=== PATIENT | female | born 1980 | race Hispanic/Latino ===

== ENCOUNTER 2017-09-08 22:59 | Emergency (ER) | payer OTHER, SELFPAY ==
[2017-09-09 00:43] LABS: Absolute Lymphocytes (CBC) 2.7 K/uL (0.7-4.9); Absolute Monocytes 0.5 K/uL (0.1-1.3); Absolute Neutrophil 4.7 K/uL (1.8-8.0); Basophils % 0.5 % (0-1.3); Eosinophils % 1.3 % (0-4.4); Hematocrit 37.6 % (36.0-45.0); Lymphocytes % 33.3 % (15.3-44.8); MCV 88.2 fL (80-100); MPV 8.4 fL (7.6-11.3); Monocytes % 5.8 % (3.3-12.3); RBC Red Blood Cell Count 4.26 M/uL (3.86-4.86)
[2017-09-09] MEDS ORDERED: NA CHLORIDE 0.9% 1,000 ML ONE (00:50)
--- NOTE | 2017-09-09 00:54 | EDPHYS ---
Physician Documentation [facility] Name: Lissette Bradshaw Age: 37 yrs Sex: Female : 1980 Arrival Date: 09/08/2017 Time: 23:03 Bed 27 Private MD: ED Physician Piyush Luna HPI: 09/09 00:00 This 37 yrs old Female presents to ER via Ambulatory with complaints of pkl Vaginal Bleeding. 00:00 The patient presents with vaginal bleeding that is heavy. Onset: The symptoms/episode pkl began/occurred today. Associated signs and symptoms: The patient has no apparent associated signs or symptoms. 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 - Social history:: Smoking status: Patient/guardian denies using tobacco, Patient/guardian denies using alcohol, street drugs. ROS: 09/09 00:00 Positive for vaginal bleeding. pkl Eyes: Negative for injury, pain, redness, and discharge, ENT: Negative for injury, pain, and discharge, Neck: Negative for injury, pain, and swelling, Cardiovascular: Negative for chest pain, palpitations, and edema, Respiratory: Negative for shortness of breath, cough, wheezing, and pleuritic chest pain. Abdomen/GI: Negative for abdominal pain, nausea, vomiting, and diarrhea. Back: Negative for acute changes. MS/extremity: Negative for acute changes. Skin: Negative for rash. Neuro: Negative for altered mental status. Exam: 00:25 Head/Face: Normocephalic, atraumatic. Eyes: Pupils equal round and reactive to light, pkl extra-ocular motions intact. Lids and lashes normal. Conjunctiva and sclera are non-icteric and not injected. Cornea within normal limits. Periorbital areas with no swelling, redness, or edema. ENT: Nares patent. No nasal discharge, no septal abnormalities noted. Tympanic membranes are normal and external auditory canals are clear. Oropharynx with no redness, swelling, or masses, exudates, or evidence of obstruction, uvula midline. Mucous membranes moist. Neck: Trachea midline, no thyromegaly or masses palpated, and no cervical lymphadenopathy. Supple, full range of motion without nuchal rigidity, or vertebral point tenderness. No Meningismus. Chest/axilla: Normal chest wall appearance and motion. Nontender with no deformity. No lesions are appreciated. Cardiovascular: Regular rate and rhythm with a normal S1 and S2. No gallops, murmurs, or rubs. Normal PMI, no JVD. No pulse deficits. Respiratory: Lungs have equal breath sounds bilaterally, clear to auscultation and percussion. No rales, rhonchi or wheezes noted. No increased work of breathing, no retractions or nasal flaring. Abdomen/GI: Soft, non-tender, with normal bowel sounds. No distension or tympany. No guarding or rebound. No evidence of tenderness throughout. Back: No spinal tenderness. No costovertebral tenderness. Full range of motion. 00:25 : Pelvic Exam: Speculum exam: mild bleeding, the nurse was present for the exam. 00:25 Musculoskeletal/extremity: Exam is negative for acute changes. 00:25 Skin: Exam negative for rash. 00:25 Neuro: Orientation: is normal, Mentation: is normal, Cranial nerves: grossly normal, Motor: is normal. Vital Signs: 09/08 23:21 BP 152 / 93; Pulse 89; Resp 18; Temp 98.; Pulse Ox 100% ; tl3 23:59 BP 102 / 85; Pulse 96; Resp 18; Pulse Ox 100% ; tl3 09/09 01:10 BP 118 / 63; Pulse 66; Resp 16; Pulse Ox 97% on R/A; kr2 MDM: 09/08 23:20 Patient medically screened. [facility] 09/09 00:53 Data reviewed: vital signs, nurses notes, lab test result(s). [facility] 09/08 23:52 Order name: Urine Dipstick--Ancillary (enter results) [facility] 09/08 23:52 Order name: Urine --Ancillary (enter results) [facility] 09/08 23:52 Order name: Urine Dipstick-Ancillary (obtain specimen); Complete Time: 23:52 [facility] 09/09 00:00 Order name: CBC with Diff; Complete Time: 00:52 [facility] 09/08 23:52 Order name: Urine Test (obtain specimen); Complete Time: 23:52 em1 Administered Medications: 00:34 Drug: NS 0.9% 500 ml Route: IV; Rate: bolus; Site: right forearm; Delivery: Primary tl3 tubing; :22 Follow up: IV Status: Completed infusion; IV Intake: 500ml tl3 01:22 Not Given (pt discharged): NS 0.9% 1000 ml IV at 100 ml/hr once tl3 Disposition: 09/09/17 00:54 Discharged to Home. Impression: Vaginal bleeding. - Condition is Stable. - Medication Reconciliation Form, Thank You Letter, Antibiotic Education, Prescription Opioid Use form. - Follow up: Private Physician; When: Tomorrow; Reason: Re-evaluation by your physician. - Problem is new. - Symptoms have improved. Signatures: Dispatcher [employer] Piyush Nolan MD MD pkl Chretien, Felicia, RN RN Richadr Torres em1 Karime James RN RN kr2 Kellen Bernal RN RN tl3
--- NOTE | 2017-09-09 00:54 | ER ---
Nurse's Notes [facility] Name: Lissette Bradshaw Age: 37 yrs Sex: Female : 1980 Arrival Date: 09/08/2017 Time: 23:03 Bed 27 Private MD: Diagnosis: Vaginal bleeding Presentation: 09/08 23:05 Presenting complaint: Patient states: that at 0230 this am she started to have bright fc red bleeding with clots. She has gone through 10 pads and 10 tampons. Transition of care: patient was not received from another setting of care. Onset of symptoms was September 08, 2017 at 02:30. Care prior to arrival: None. 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 - Social history:: Smoking status: Patient/guardian denies using tobacco, Patient/guardian denies using alcohol, street drugs. Screenin:21 Abuse screen: Denies threats or abuse. Nutritional screening: No deficits noted. fc Tuberculosis screening: No symptoms or risk factors identified. 23:21 Fall Risk None identified. tl3 Assessment: 23:21 General: Appears in no apparent distress. comfortable, well groomed, well developed, tl3 well nourished, Behavior is calm, cooperative, appropriate for age. Pain: Complains of pain in left upper quadrant and left lower quadrant Pain currently is 6 out of 10 on a pain scale. Neuro: Level of Consciousness is awake, alert, obeys commands, Oriented to person, place, time, situation, Appropriate for age. Cardiovascular: Heart tones S1 S2 present Capillary refill < 3 seconds in bilateral fingers. Respiratory: Airway is patent Trachea midline Respiratory effort is even, unlabored, Breath sounds are clear bilaterally. GI: No signs and/or symptoms were reported involving the gastrointestinal system. : Urine is Reports vaginal bleeding that is bright red, heavy flow started at 2:00 am, gushing amount of blood. Last cycle started on the 28 of August and was normal, lasted about 7 days. EENT: No signs and/or symptoms were reported regarding the EENT system. Derm: No signs and/or symptoms reported regarding the dermatologic system. Musculoskeletal: No signs and/or symptoms reported regarding the musculoskeletal system. 09/09 01:09 Reassessment: Patient appears in no apparent distress at this time. Patient is alert, kr2 oriented x 3, equal unlabored respirations, skin warm/dry/pink. Given feminine pads and wipes due to continued vaginal bleeding. Vital Signs: 09/08 23:21 BP 152 / 93; Pulse 89; Resp 18; Temp 98.; Pulse Ox 100% ; tl3 23:59 BP 102 / 85; Pulse 96; Resp 18; Pulse Ox 100% ; tl3 09/09 01:10 BP 118 / 63; Pulse 66; Resp 16; Pulse Ox 97% on R/A; kr2 ED Course: 09/08 23:03 Patient arrived in ED. es 23:05 Arm band placed on right wrist. Patient placed in an exam room, on a stretcher. fc 23:12 Kellen Bernal, RONI is Primary Nurse. tl3 23:20 Triage completed. fc 23:20 Piyush Luna MD is Attending Physician. pkl 23:21 No apparent distress. Resting quietly. Awaiting ED provider evaluation. tl3 23:21 Patient has correct armband on for positive identification. Bed in low position. Call fc light in reach. 23:21 Warm blanket given. tl3 23:21 No provider procedures requiring assistance completed. fc 23:21 Urine collected: clean catch specimen. tl3 23:44 Straight cath inserted, using sterile technique, 16 Fr. Specimen obtained. tl3 09/09 00:14 Assist provider with pelvic exam: Set up pelvic tray. Performed by Piyush Luna MD Patient tl3 tolerated well. 01:11 IV discontinued, intact, bleeding controlled, No redness/swelling at site. Pressure kr2 dressing applied. Administered Medications: 00:34 Drug: NS 0.9% 500 ml Route: IV; Rate: bolus; Site: right forearm; Delivery: Primary tl3 tubing; 01:22 Follow up: IV Status: Completed infusion; IV Intake: 500ml tl3 01:22 Not Given (pt discharged): NS 0.9% 1000 ml IV at 100 ml/hr once tl3 Intake: 01:22 IV: 500ml; Total: 500ml. tl3 Outcome: 00:54 Discharge ordered by . malathi 01:11 Discharged to home ambulatory. kr2 01:11 Condition: good 01:11 Discharge instructions given to patient, Instructed on discharge instructions, follow up and referral plans. medication usage, Demonstrated understanding of instructions, follow-up care, medications, Prescriptions given X 1. 01:11 Patient left the ED. kr2 Signatures: Piyush Luna MD MD pkl Edelmira Real Felicia RN RN Karime James RN RN kr2 Kellen Bernal RN RN tl3
[2017-09-09 01:42] LABS: Urine Blood 2+ (NEG); Urine Glucose NEGATIVE (NEG); Urine Protein TRACE (NEG); Urine Specific Gravity >1.030 (1.005-1.030)
[2017-09-09 01:48] VITALS: TEMP 98
[2017-09-09 01:51] VITALS: BP 118/63; O2SAT 97
== END 2017-09-09 01:11 | disposition home or self-care (01) ==
LOC: ER 22:59
DX: N93.9 Abnormal uterine and vaginal bleeding, unspecified (principal)
CPT/HCPCS: 36415; 51702; 81003; 81025; 85025; 96360; 99284; J7030

== ENCOUNTER 2021-04-13 07:28 | Emergency (ER) | payer SELFPAY ==
[2021-04-13] MEDS ORDERED: HYDROCODONE/APAP 5/325 MG TAB ONE (07:57)
--- NOTE | 2021-04-13 08:55 | RAD REPORT ---
EXAM DESCRIPTION: RAD - Elbow Right 3 View - 04/13/2021 8:28 am CLINICAL HISTORY: PAIN COMPARISON: No comparisons FINDINGS: No acute fracture or dislocation seen.
--- NOTE | 2021-04-13 09:17 | ER ---
Nurse's Notes [facility] Name: Lissette Bradshaw Age: 41 yrs Sex: Female : 1980 Arrival Date: 04/13/2021 Time: 07:31 Bed 20 Private MD: Diagnosis: Contusion of right elbow Presentation: 04/13 07:39 Chief complaint: Patient states: Hit R elbow 2 weeks ago. Pain since. PMS intact. ll1 Coronavirus screen: Vaccine status: Patient reports receiving the 2nd dose of the covid vaccine. Client denies travel out of the [place] in the last 14 days. At this time, the client does not indicate any symptoms associated with coronavirus-19. Ebola Screen: Patient denies travel to an Ebola-affected area in the 21 days before illness onset. Initial Sepsis Screen: Does the patient meet any 2 criteria? No. Patient's initial sepsis screen is negative. Does the patient have a suspected source of infection? Yes: Bone or joint infection. Risk Assessment: Do you want to hurt yourself or someone else? Patient reports no desire to harm self or others. Onset of symptoms was March 29, 2021. 07:39 Method Of Arrival: Ambulatory ll1 07:39 Acuity: HARVINDER 4 ll1 Triage Assessment: 07:41 General: Appears in no apparent distress. Behavior is calm, cooperative, appropriate ll1 for age. Pain: Denies pain. Musculoskeletal: Circulation, motion, and sensation intact. Capillary refill < 3 seconds, Range of motion: intact in all extremities, Tenderness present in R elbow Reports pain in R elbow. Injury Description: Bruise. Historical: - Allergies: 07:38 No Known Allergies; ll1 - PMHx: 07:38 None; ll1 - PSHx: 07:38 Cholecystectomy; tubes tied; ll1 - Immunization history:: Client reports receiving the 2nd dose of the Covid vaccine. - Social history:: Smoking status: Reported history of juuling and/or vaping. Patient/guardian denies using alcohol, street drugs, The patient lives with family. - Family history:: not pertinent. Screenin:41 Abuse screen: Denies threats or abuse. Nutritional screening: No deficits noted. ll1 Tuberculosis screening: No symptoms or risk factors identified. 07:42 Fall Risk Total Ya Fall Scale indicates No Risk (0-24 pts). ll1 Assessment: 09:22 Reassessment: Patient appears in no apparent distress at this time. Patient and/or ss family updated on plan of care and expected duration. Pain level reassessed. Patient is alert, oriented x 3, equal unlabored respirations, skin warm/dry/pink. Vital Signs: 07:39 BP 149 / 90; Pulse 64; Resp 16; Temp 97.7; Pulse Ox 100% ; Weight 90.72 kg; Height 5 ll1 ft. 7 in. (170.18 cm); Pain 10/10; 07:39 Body Mass Index 31.32 (90.72 kg, 170.18 cm) ll1 ED Course: 07:31 Patient arrived in ED. ds1 07:32 Amos Galarza MD is Attending Physician. ma2 07:38 La Nena Acosta, RONI is Primary Nurse. ll1 07:38 Arm band placed on Patient placed in an exam room, on a stretcher. ll1 07:40 Triage completed. ll1 07:41 Patient has correct armband on for positive identification. Bed in low position. Call 1 light in reach. Side rails up X 1. Cardiac monitoring not applicable on this patient. 08:00 Sling applied to. 5 08:28 Elbow Right 3 View XRAY In Process Unspecified. EDMS 09:22 No provider procedures requiring assistance completed. Patient did not have IV access ss during this emergency room visit. Administered Medications: 08:00 Drug: HYDROcodone-acetaminophen 5 mg-325 mg 1 tabs {Note: rass 0.} Route: PO; 1 09:03 Follow up: Response: No adverse reaction; Pain is decreased 1 Outcome: 09:17 Discharge ordered by . [facility] 09:22 Discharged to home ambulatory. ss 09:22 Condition: good 09:22 Discharge instructions given to patient, Instructed on discharge instructions, follow up and referral plans. medication usage, Demonstrated understanding of instructions, follow-up care, medications, Prescriptions given X 1. 09:24 Patient left the ED. Signatures: Dispatcher [employer] EDVT McclureYahaira rivera ds1 Miley Reyes RN RN Tahmina Graves 5 Amos Galarza MD MD ma2 Lewis, Lynsay, RN RN [facility]
--- NOTE | 2021-04-13 09:17 | EDPHYS ---
Physician Documentation [facility] Name: Lissette Bradshaw Age: 41 yrs Sex: Female : 1980 Arrival Date: 04/13/2021 Time: 07:31 Bed 20 Private MD: ED Physician Amos Galarza HPI: 04/13 09:15 This 41 yrs old Female presents to ER via Ambulatory with complaints of Elbow ma2 Pain. 09:15 The patient or guardian complains of decreased range of motion. The complaints affect ma2 the right antecubital area. Onset: The symptoms/episode began/occurred suddenly, gradually, 2 week(s) ago. Associated signs and symptoms: Pertinent positives: Pertinent negatives: erythema, pain, tingling, warmth. Severity of symptoms: At their worst the symptoms were moderate, in the emergency department the symptoms are unchanged. The patient has not experienced similar symptoms in the past. Historical: - Allergies: 07:38 No Known Allergies; ll1 - PMHx: 07:38 None; ll1 - PSHx: 07:38 Cholecystectomy; tubes tied; ll1 - Immunization history:: Client reports receiving the 2nd dose of the Covid vaccine. - Social history:: Smoking status: Reported history of juuling and/or vaping. Patient/guardian denies using alcohol, street drugs, The patient lives with family. - Family history:: not pertinent. ROS: 09:15 Constitutional: Negative for fever, chills, and weight loss. ma2 09:15 All other systems are negative. Exam: 09:15 Constitutional: This is a well developed, well nourished patient who is awake, alert, ma2 and in no acute distress. Chest/axilla: Normal chest wall appearance and motion. Nontender with no deformity. No lesions are appreciated. Cardiovascular: Regular rate and rhythm with a normal S1 and S2. No gallops, murmurs, or rubs. Normal PMI, no JVD. No pulse deficits. Respiratory: Lungs have equal breath sounds bilaterally, clear to auscultation and percussion. No rales, rhonchi or wheezes noted. No increased work of breathing, no retractions or nasal flaring. Abdomen/GI: Soft, non-tender, with normal bowel sounds. No distension or tympany. No guarding or rebound. No evidence of tenderness throughout. Skin: Warm, dry with normal turgor. Normal color with no rashes, no lesions, and no evidence of cellulitis. MS/ Extremity: Pulses equal, no cyanosis. Neurovascular intact. Full, normal range of motion. Neuro: Awake and alert, GCS 15, oriented to person, place, time, and situation. Cranial nerves II-XII grossly intact. Motor strength 5/5 in all extremities. Sensory grossly intact. Cerebellar exam normal. Normal gait. Vital Signs: 07:39 BP 149 / 90; Pulse 64; Resp 16; Temp 97.7; Pulse Ox 100% ; Weight 90.72 kg; Height 5 ll1 ft. 7 in. (170.18 cm); Pain 10/10; 07:39 Body Mass Index 31.32 (90.72 kg, 170.18 cm) ll1 MDM: 07:32 Patient medically screened. ma2 09:15 Differential diagnosis: closed fracture, contusion, abrasion, tendonitis. Data ma2 reviewed: vital signs, nurses notes. Counseling: I had a detailed discussion with the patient and/or guardian regarding: the historical points, exam findings, and any diagnostic results supporting the discharge/admit diagnosis, the presence of at least one elevated blood pressure reading (>120/80) during this emergency department visit, the need for outpatient follow up. Response to treatment: the patient's symptoms have markedly improved after treatment. 04/13 07:56 Order name: Elbow Right 3 View XRAY; Complete Time: 09:15 ma2 04/13 07:56 Order name: Sling; Complete Time: 08:00 ma2 Administered Medications: 08:00 Drug: HYDROcodone-acetaminophen 5 mg-325 mg 1 tabs {Note: rass 0.} Route: PO; ll1 09:03 Follow up: Response: No adverse reaction; Pain is decreased ll1 Disposition Summary: 04/13/21 09:17 Discharge Ordered Location: Home ma2 Condition: Stable ma2 Diagnosis - Contusion of right elbow ma2 Followup: ma2 - With: Private Physician - When: Tomorrow - Reason: If symptoms return, Continuance of care Discharge Instructions: - Discharge Summary Sheet ma2 - Elbow Contusion, [id number] ma2 Forms: - Medication Reconciliation Form ma2 - Thank You Letter ma2 - Antibiotic Education ma2 - Prescription Opioid Use ma2 Prescriptions: - Diclofenac Sodium 75 mg Oral Tablet Sustained Release - take 1 tablet by ORAL route 2 times per day; 30 tablet; Refills: 0, Product ma2 Selection Permitted Signatures: Dispatcher [employer] Amos Michaels MD MD ma2 La Nena Acosta RN RN ll1
[2021-04-13 09:28] VITALS: BP 149/90; TEMP 97.7; O2SAT 100
--- OUTSIDE RECORDS SUMMARY | 2021-04-21 12:12 | XMS REPORT | Continuity of Care Document ---
:1980 Author Organization [facility] Address [facility] [place] [address] [place] [id number] Care Team Providers Name Role Phone Khai CHOUHDARY Attending Clinician Unavailable Problems This patient has no known problems. Allergies, Adverse Reactions, Alerts Allergy Allergy Status Severity Reaction(s) Onset Inactive Treating Comm ents Source Name Type Date Date Clinician NO KNOWN Drug Active [facility]ERG[facility] Medications This patient has no known medications. Procedures This patient has no known procedures. Encounters Start End Encounter Admission Attending Care Care Encounter Source Date/Time Date/Time Type Type Clinicians Facility Department ID 2020-09-15 2020-09-15 Outpatient Mirta CHOUDHARY [facility] [id number] [facility] 13:30:00 13:30:00 MAR[facility] 2020-08-25 2020-08-25 Outpatient [facility] [id number] [facility] 13:30:00 13:30:00 [facility] Results This patient has no known results.
== END 2021-04-13 09:24 | disposition home or self-care (01) ==
LOC: ER 07:28
DX: S50.01XA Contusion of right elbow, initial encounter (principal)
CPT/HCPCS: 99284